=== PATIENT | male | born 1990 | race Caucasian/White ===

== ENCOUNTER 2020-06-07 20:28 | Inpatient (IN) | payer BC, OTHER ==
[2020-06-07 20:50] LABS: Glucose,Whole Blood >600 mg/dL (75-99)
[2020-06-07] MEDS ORDERED: SODIUM CHLORIDE 0.9% 1,000 ML IV STA ×2 (20:53→21:42)
[2020-06-07] MEDS ORDERED: ONDANSETRON 4 MG/2 ML VIAL IVP STA ×2 (20:53→22:38)
--- NOTE | 2020-06-07 21:00 | ED ---
General Adult HPI - General Chief complaint: Nausea/Vomiting/Diarrhea Stated complaint: n/v Time Seen by Provider: 06/07/20 20:44 Source: patient Mode of arrival: ambulatory Limitations: no limitations - History of Present Illness Initial comments: Patient presents the ED complaining of having nausea, vomiting, generalized weakness and dyspnea since about 7 AM this morning. Patient states that he is a type I diabetic and he has not been checking his blood glucose levels recently. Patient states that he has been taking his insulin as prescribed. Patient states that he takes sliding scale NovoLog insulin, and he states that he takes Lantus insulin 38 units every morning. Patient denies having any pain, fever or chills, headache, focal neuro deficit, chest pain, cough or cold symptoms, palpitations, syncope, abdominal pain, diarrhea or constipation, bloody or melanotic stool, hematemesis, dysuria/hematuria/urinary symptoms, leg or calf swelling or pain, or any other symptoms or complaints. Patient denies alcohol or drug abuse. - Related Data Home Medications Medication Instructions Recorded Confirmed INSULIN ASPART (NovoLOG) [NovoLOG See Protocol SQ ACHS 06/07/20 06/07/20 (formulary)] Insulin Glargine [Lantus] 38 unit SQ DAILY 06/07/20 06/07/20 Allergies Allergy/AdvReac Type Severity Reaction Status Date / Time Penicillins Allergy Unknown Verified 06/07/20 21:51 Review of Systems ROS Statement: Those systems with pertinent positive or pertinent negative responses have been documented in the HPI. ROS Other: All systems not noted in ROS Statement are negative. Past Medical History Past Medical History: Diabetes Mellitus History of Any Multi-Drug Resistant Organisms: None Reported Past Surgical History: No Surgical Hx Reported Past Psychological History: No Psychological Hx Reported Smoking Status: Current every day smoker Past Alcohol Use History: None Reported Past Drug Use History: None Reported General Exam Limitations: no limitations General appearance: alert Head exam: Present: atraumatic, normocephalic Eye exam: Present: normal appearance, EOMI ENT exam: Present: mucous membranes dry Neck exam: Present: other (Trachea is in midline). Absent: tenderness, meningismus Respiratory exam: Present: normal lung sounds bilaterally, other (Patient is tachypneic). Absent: wheezes, rales, rhonchi, stridor Cardiovascular Exam: Present: normal rhythm, tachycardia, normal heart sounds, other (Normal radial pulses bilaterally) GI/Abdominal exam: Present: soft. Absent: distended, tenderness, guarding Extremities exam: Absent: tenderness, pedal edema, calf tenderness Back exam: Absent: CVA tenderness (R), CVA tenderness (L) Neurological exam: Present: alert, oriented X3. Absent: motor sensory deficit Psychiatric exam: Present: normal affect, normal mood Skin exam: Present: warm, dry, intact, normal color Course Vital Signs 06/07/20 06/07/20 20:36 21:42 Temperature 98.9 F Pulse Rate 125 H 124 H Respiratory 22 21 Rate Blood Pressure 143/78 144/77 O2 Sat by Pulse 100 100 Oximetry - Reevaluation(s) Reevaluation #1: 06/07/20 22:20 Case, H&P, test results and ED management thus far were discussed with Dr. Jones who is currently in the ED. He accepts hospital admission. He recommends ICU admission and food service utility worker consultation. He has no further recommendations at this time. 06/07/20 22:24 Case was discussed with Dr. Llanes (food service utility worker). He states that he is fine with ICU admission. He has no further recommendations at this time. 06/07/20 22:41 Patient states that his nausea has improved with ED management thus far, and he denies development of any new symptoms while in the ED. Patient is aware of his test results, and he agrees with hospital admission this time. EKG Findings - EKG Comments: EKG Findings:: EKG is limited secondary to motion artifact, sinus tachycardia, ventricular rate of 120 bpm, normal IN and QRS intervals, normal QT interval, normal axis, no ST or T-wave abnormality Medical Decision Making - Medical Decision Making Patient is noted to be in DKA. IV fluid boluses and IV antiemetics were given in the ED. IV insulin drip was initiated in the ED. Dr. Banda has accepted hospital admission, and Dr. Llanes (food service utility worker) has been consulted. - Lab Data Result diagrams: 06/07/20 21:05 06/07/20 21:05 Lab Results 06/07/20 06/07/20 06/07/20 Range/Units 20:42 21:05 21:05 WBC 26.2 H (3.8-10.6) k/uL RBC 5.87 (4.30-5.90) m/uL Hgb 16.9 (13.0-17.5) gm/dL Hct 54.7 H (39.0-53.0) % MCV 93.2 (80.0-100.0) fL MCH 28.7 (25.0-35.0) pg MCHC 30.8 L (31.0-37.0) g/dL RDW 12.5 (11.5-15.5) % Plt Count 373 (150-450) k/uL MPV 8.0 Neutrophils % 90 % Lymphocytes % 5 % Monocytes % 5 % Eosinophils % 0 % Basophils % 0 % Neutrophils # 23.5 H (1.3-7.7) k/uL Lymphocytes # 1.3 (1.0-4.8) k/uL Monocytes # 1.2 H (0-1.0) k/uL Eosinophils # 0.0 (0-0.7) k/uL Basophils # 0.1 (0-0.2) k/uL Hypochromasia Moderate VBG pH (7.31-7.41) VBG pCO2 (37-51) mmHg VBG HCO3 (24-28) mmol/L Sodium (137-145) mmol/L Potassium (3.5-5.1) mmol/L Chloride (98-107) mmol/L Carbon Dioxide (22-30) mmol/L Anion Gap mmol/L BUN (9-20) mg/dL Creatinine (0.66-1.25) mg/dL Est GFR (CKD-EPI)AfAm (>60 ml/min/1.73 sqM) Est GFR (CKD-EPI)NonAf (>60 ml/min/1.73 sqM) Glucose (74-99) mg/dL POC Glucose (mg/dL) >600 H (75-99) mg/dL POC Glu Colorman ID Alexandra Ortega Calcium (8.4-10.2) mg/dL Phosphorus (2.5-4.5) mg/dL Magnesium (1.6-2.3) mg/dL Total Bilirubin (0.2-1.3) mg/dL AST (17-59) U/L ALT (4-49) U/L Alkaline Phosphatase (38-126) U/L Total Protein (6.3-8.2) g/dL Albumin (3.5-5.0) g/dL Lipase (23-300) U/L Urine Color Colorless Urine Appearance Clear (Clear) Urine pH 5.0 (5.0-8.0) Ur Specific [place] 1.020 (1.001-1.035) Urine Protein Negative (Negative) Urine Glucose (UA) 4+ H (Negative) Urine Ketones 3+ H (Negative) Urine Blood Small H (Negative) Urine Nitrite Negative (Negative) Urine Bilirubin Negative (Negative) Urine Urobilinogen <2.0 (<2.0) mg/dL Ur Leukocyte Esterase Negative (Negative) Urine RBC 2 (0-5) /hpf Urine WBC <1 (0-5) /hpf Acetone, Qual (Negative) 06/07/20 06/07/20 06/07/20 Range/Units 21:05 21:25 22:07 WBC (3.8-10.6) k/uL RBC (4.30-5.90) m/uL Hgb (13.0-17.5) gm/dL Hct (39.0-53.0) % MCV (80.0-100.0) fL MCH (25.0-35.0) pg MCHC (31.0-37.0) g/dL RDW (11.5-15.5) % Plt Count (150-450) k/uL MPV Neutrophils % % Lymphocytes % % Monocytes % % Eosinophils % % Basophils % % Neutrophils # (1.3-7.7) k/uL Lymphocytes # (1.0-4.8) k/uL Monocytes # (0-1.0) k/uL Eosinophils # (0-0.7) k/uL Basophils # (0-0.2) k/uL Hypochromasia VBG pH 7.20 L* (7.31-7.41) VBG pCO2 21 L (37-51) mmHg VBG HCO3 8 L* (24-28) mmol/L Sodium 127 L (137-145) mmol/L Potassium 6.0 H (3.5-5.1) mmol/L Chloride 83 L (98-107) mmol/L Carbon Dioxide 6 L* (22-30) mmol/L Anion Gap 38 mmol/L BUN 28 H (9-20) mg/dL Creatinine 1.76 H (0.66-1.25) mg/dL Est GFR (CKD-EPI)AfAm 59 (>60 ml/min/1.73 sqM) Est GFR (CKD-EPI)NonAf 51 (>60 ml/min/1.73 sqM) Glucose 829 H* (74-99) mg/dL POC Glucose (mg/dL) >600 H (75-99) mg/dL POC Glu Colorman ID Magda Melton Calcium 9.7 (8.4-10.2) mg/dL Phosphorus 10.2 H* (2.5-4.5) mg/dL Magnesium 2.2 (1.6-2.3) mg/dL Total Bilirubin 1.0 (0.2-1.3) mg/dL AST 21 (17-59) U/L ALT 27 (4-49) U/L Alkaline Phosphatase 144 H (38-126) U/L Total Protein 7.6 (6.3-8.2) g/dL Albumin 5.1 H (3.5-5.0) g/dL Lipase 47 (23-300) U/L Urine Color Urine Appearance (Clear) Urine pH (5.0-8.0) Ur Specific Eden (1.001-1.035) Urine Protein (Negative) Urine Glucose (UA) (Negative) Urine Ketones (Negative) Urine Blood (Negative) Urine Nitrite (Negative) Urine Bilirubin (Negative) Urine Urobilinogen (<2.0) mg/dL Ur Leukocyte Esterase (Negative) Urine RBC (0-5) /hpf Urine WBC (0-5) /hpf Acetone, Qual Positive (Negative) Critical Care Time Critical Care Time: Yes Total Critical Care Time: 50 (DKA) Disposition Clinical Impression: Nausea and vomiting, Diabetic ketoacidosis Disposition: ADMITTED IP TO THIS [facility] Condition: Stable Is patient prescribed a controlled substance at d/c from ED?: No Referrals: None,Stated [Primary Care Provider] - 1-2 days Time of Disposition: 22:36
[2020-06-07 21:32] LABS: ALT 27 U/L (4-49); AST 21 U/L (17-59); African American GFR (CKD) 59 (>60 ml/min/1.73 sqM); Albumin 5.1 g/dL (3.5-5.0); Alkaline Phosphatase 144 U/L (38-126); Blood Urea Nitrogen 28 mg/dL (9-20); Calcium 9.7 mg/dL (8.4-10.2); Chloride 83 mmol/L (98-107); Lipase 47 U/L (23-300); Magnesium 2.2 mg/dL (1.6-2.3); Non-African American GFR(CKD) 51 (>60 ml/min/1.73 sqM); Sodium 127 mmol/L (137-145); Total Protein 7.6 g/dL (6.3-8.2)
--- NOTE | 2020-06-07 21:34 | XR ---
EXAMINATION TYPE: XR chest 1V portable DATE OF EXAM: 06/07/2020 COMPARISON: 06/15/2012 HISTORY: Short of breath TECHNIQUE: FINDINGS: Heart and mediastinum are normal. Lungs are clear. Diaphragm is normal. Bony thorax appears normal. IMPRESSION: Normal chest. No change.
[2020-06-07 21:36] LABS: Anion Gap 38 mmol/L; Appearance,Urine Clear (Clear); Bilirubin,Urine Negative (Negative); Blood,Urine Small (Negative); Color,Urine Colorless; Glucose,Urine (UA) 4+ (Negative); Leukocyte Esterase,Urine Negative (Negative); Nitrite,Urine Negative (Negative); Protein,Urine Negative (Negative); RBC,Urine 2 /hpf (0-5); Urobilinogen,Urine <2.0 mg/dL (<2.0); WBC,Urine <1 /hpf (0-5)
[2020-06-07 21:46] LABS: Basophils # (A) 0.1 k/uL (0-0.2); Basophils % (A) 0 %; Eosinophils % (A) 0 %; HCT 54.7 % (39.0-53.0); HGB 16.9 gm/dL (13.0-17.5); Hypochromasia Moderate; Lymphocytes # (A) 1.3 k/uL (1.0-4.8); Lymphocytes % (A) 5 %; MCH 28.7 pg (25.0-35.0); MCHC 30.8 g/dL (31.0-37.0); MCV 93.2 fL (80.0-100.0); Monocytes # (A) 1.2 k/uL (0-1.0); Monocytes % (A) 5 %; Neutrophils # (A) 23.5 k/uL (1.3-7.7); Neutrophils % (A) 90 %; Platelet Count 373 k/uL (150-450); RBC 5.87 m/uL (4.30-5.90); RDW 12.5 % (11.5-15.5); WBC 26.2 k/uL (3.8-10.6)
[2020-06-07 21:52] LABS: Glucose 829 mg/dL (74-99)
[2020-06-07 21:54] LABS: VBG PH 7.2 (7.31-7.41)
[2020-06-07 21:54] LABS: Carbon Dioxide 6 mmol/L (22-30); Ketones,Urine 3+ (Negative); Phosphorus 10.2 mg/dL (2.5-4.5)
[2020-06-07] MEDS ORDERED: INSULIN REGULAR BOLUS (FROM DRIP BAG) IV ONE (22:01)
[2020-06-07 22:09] LABS: Glucose,Whole Blood >600 mg/dL (75-99)
[2020-06-07] MEDS ORDERED: INSULIN REGULAR 100 UNIT in SODIUM CHLORIDE 0.9% 100 ML IV SCH (22:30)
[2020-06-07] MEDS: INSULIN REGULAR 100 UNIT in SODIUM CHLORIDE 0.9% 100 ML IV SCH (22:35)
[2020-06-07] MEDS ORDERED: ONDANSETRON 4 MG/2 ML VIAL IVP PRN (22:39)
[2020-06-07] MEDS: SODIUM CHLORIDE 0.9% 1,000 ML IV SCH (22:43)
[2020-06-07] MEDS ORDERED: LIDOCAINE VISCOUS 2% 15 ML CUP MUCOUS MEM STA (23:04)
[2020-06-07 23:11] LABS: Glucose,Whole Blood >600 mg/dL (75-99)
[2020-06-07 23:42] LABS: Glucose,Whole Blood 561 mg/dL (75-99)
[2020-06-08 00:27] LABS: Phosphorus 5.1 mg/dL (2.5-4.5); Potassium 4.9 mmol/L (3.5-5.1)
[2020-06-08 00:55] LABS: Glucose,Whole Blood 437 mg/dL (75-99)
[2020-06-08] MEDS ORDERED: Magnesium Replacement Protocol 1 EACH MISC MISCELLANE PRN (01:46)
[2020-06-08] MEDS ORDERED: Potassium Replacement Protocol 1 EACH MISC MISCELLANE PRN (01:46)
--- NOTE | 2020-06-08 02:00 | P.HPIM ---
History of Present Illness H&P Date: 06/07/20 Chief Complaint: abd pain , generalized weakness 29 year old male with DM insulin dependant patient comes in with generalized weakness, fatigue, and abd pain . he reports vomiting multiple times today, with sore throat, denies any coughing, chest pain , trouble breathing, urinary symptoms, diarrhea, or gi bleeding. he admits to not checking his blood sugar levels, but he has been taking his insulin. he does not watch his diet either. he was found to have severe hyperglycemia with DKA. Review of Systems Pertinent positives as noted in HPI. All other systems were reviewed and are negative Past Medical History Past Medical History: Diabetes Mellitus History of Any Multi-Drug Resistant Organisms: None Reported Past Surgical History: No Surgical Hx Reported Past Psychological History: No Psychological Hx Reported Smoking Status: Current every day smoker Past Alcohol Use History: None Reported Past Drug Use History: None Reported - Past Family History family Family Medical History: No Reported History Medications and Allergies Home Medications Medication Instructions Recorded Confirmed Type INSULIN ASPART (NovoLOG) [NovoLOG See Protocol SQ ACHS 06/07/20 06/07/20 History (formulary)] Insulin Glargine [Lantus] 38 unit SQ DAILY 06/07/20 06/07/20 History Allergies Allergy/AdvReac Type Severity Reaction Status Date / Time Penicillins Allergy Unknown Verified 06/07/20 21:51 Physical Exam Vitals: Vital Signs Temp Pulse Resp BP Pulse Ox 06/07/20 21:42 124 H 21 144/77 100 06/07/20 20:36 98.9 F 125 H 22 143/78 100 Intake and Output 06/07/20 06/07/20 06/08/20 14:59 22:59 06:59 Other: Weight 90.718 kg Constitutional: patient looks very sick and tired Eyes: Anicteric sclerae, moist conjunctiva, Pupils equal round reactive to light ENMT: NC/AT Oropharynx clear, irritation of his oropharynx, no exudates Neck: Supple, FROM, no masses, or JVD No carotid bruits No thyromegaly Lungs: Clear to auscultation Clear to percussion Normal respiratory effort, no accessory muscle use Cardiovascular: Heart regular in rate and rhythm, No murmurs, gallops, or rubs No peripheral edema Abdominal: Soft Nontender, no guarding, rebound or rigidity Abdomen moving with respiration Normoactive bowel sounds No hepatomegaly, No splenomegaly No palpable mass No abdominal wall hernia noted Skin: Normal temperature, tone, texture, turgor No induration No subcutaneous nodules No rash, lesions No ulcers Extremities: No digital cyanosis No clubbing Pedal pulses intact and symmetrical Radial pulses intact and symmetrical No calf tenderness Psychiatric: Alert and oriented to person, place Neuro Muscles Strength 4/5 in all 4 extremities Sensation to light touch grossly present throughout Cranial nerves II-XII grossly intact No focal sensory deficits Lymphatics: no palpable cervical or supraclavicular , or inguinal lymph nodes Results CBC & Chem 7: 06/07/20 21:06/08/20 00:06 Labs: Abnormal Lab Results - Last 24 Hours (Table) 06/07/20 06/07/20 06/07/20 Range/Units 20:42 21:05 21:05 WBC 26.2 H (3.8-10.6) k/uL Hct 54.7 H (39.0-53.0) % MCHC 30.8 L (31.0-37.0) g/dL Neutrophils # 23.5 H (1.3-7.7) k/uL Monocytes # 1.2 H (0-1.0) k/uL VBG pH (7.31-7.41) VBG pCO2 (37-51) mmHg VBG HCO3 (24-28) mmol/L Sodium (137-145) mmol/L Potassium (3.5-5.1) mmol/L Chloride (98-107) mmol/L Carbon Dioxide (22-30) mmol/L BUN (9-20) mg/dL Creatinine (0.66-1.25) mg/dL Glucose (74-99) mg/dL POC Glucose (mg/dL) >600 H (75-99) mg/dL Phosphorus (2.5-4.5) mg/dL Alkaline Phosphatase (38-126) U/L Albumin (3.5-5.0) g/dL Urine Glucose (UA) 4+ H (Negative) Urine Ketones 3+ H (Negative) Urine Blood Small H (Negative) 06/07/20 06/07/20 06/07/20 Range/Units 21:05 21:25 22:07 WBC (3.8-10.6) k/uL Hct (39.0-53.0) % MCHC (31.0-37.0) g/dL Neutrophils # (1.3-7.7) k/uL Monocytes # (0-1.0) k/uL VBG pH 7.20 L* (7.31-7.41) VBG pCO2 21 L (37-51) mmHg VBG HCO3 8 L* (24-28) mmol/L Sodium 127 L (137-145) mmol/L Potassium 6.0 H (3.5-5.1) mmol/L Chloride 83 L (98-107) mmol/L Carbon Dioxide 6 L* (22-30) mmol/L BUN 28 H (9-20) mg/dL Creatinine 1.76 H (0.66-1.25) mg/dL Glucose 829 H* (74-99) mg/dL POC Glucose (mg/dL) >600 H (75-99) mg/dL Phosphorus 10.2 H* (2.5-4.5) mg/dL Alkaline Phosphatase 144 H (38-126) U/L Albumin 5.1 H (3.5-5.0) g/dL Urine Glucose (UA) (Negative) Urine Ketones (Negative) Urine Blood (Negative) 06/07/20 06/07/20 06/08/20 Range/Units 23:09 23:40 00:06 WBC (3.8-10.6) k/uL Hct (39.0-53.0) % MCHC (31.0-37.0) g/dL Neutrophils # (1.3-7.7) k/uL Monocytes # (0-1.0) k/uL VBG pH (7.31-7.41) VBG pCO2 (37-51) mmHg VBG HCO3 (24-28) mmol/L Sodium 134 L (137-145) mmol/L Potassium (3.5-5.1) mmol/L Chloride 96 L (98-107) mmol/L Carbon Dioxide 9 L* (22-30) mmol/L BUN 29 H (9-20) mg/dL Creatinine 1.42 H (0.66-1.25) mg/dL Glucose 565 H* (74-99) mg/dL POC Glucose (mg/dL) >600 H 561 H (75-99) mg/dL Phosphorus 5.1 H (2.5-4.5) mg/dL Alkaline Phosphatase (38-126) U/L Albumin (3.5-5.0) g/dL Urine Glucose (UA) (Negative) Urine Ketones (Negative) Urine Blood (Negative) 06/08/20 Range/Units 00:53 WBC (3.8-10.6) k/uL Hct (39.0-53.0) % MCHC (31.0-37.0) g/dL Neutrophils # (1.3-7.7) k/uL Monocytes # (0-1.0) k/uL VBG pH (7.31-7.41) VBG pCO2 (37-51) mmHg VBG HCO3 (24-28) mmol/L Sodium (137-145) mmol/L Potassium (3.5-5.1) mmol/L Chloride (98-107) mmol/L Carbon Dioxide (22-30) mmol/L BUN (9-20) mg/dL Creatinine (0.66-1.25) mg/dL Glucose (74-99) mg/dL POC Glucose (mg/dL) 437 H (75-99) mg/dL Phosphorus (2.5-4.5) mg/dL Alkaline Phosphatase (38-126) U/L Albumin (3.5-5.0) g/dL Urine Glucose (UA) (Negative) Urine Ketones (Negative) Urine Blood (Negative) Assessment and Plan Assessment: DKA secondary to non compliance DM insulin dependant pseudohyponatremia 2/2 hyperglycemia reactive leukocytosis plan NPO ICU admission due to severe acidosis insulin drip, and bolus insulin IV once aggressive IV fluid hydration close monitoring or electrolytes , K replacement as needed close monitoring of blood sugar, bicarb and anion gap monitor vital signs dietry consult and diabetic education CODE STATUS:full code DVT prophylaxis: mechanical Discussed with: Patient, ER Anticipated length of stay > than [address]: home A total of 75 minutes was spent on the care of this complex patient more than 50% of the time was spent in counseling and care coordination.
[2020-06-08 02:51] LABS: Glucose,Whole Blood 305 mg/dL (75-99)
[2020-06-08] MEDS ORDERED: NALOXONE 0.4 MG/ML 1 ML VIAL IV PRN (04:37)
[2020-06-08 04:41] LABS: Albumin 4.5 g/dL (3.5-5.0); Calcium 9.1 mg/dL (8.4-10.2); Phosphorus 2.2 mg/dL (2.5-4.5); Potassium 4.2 mmol/L (3.5-5.1); Total Bilirubin 0.8 mg/dL (0.2-1.3); Total Protein 6.9 g/dL (6.3-8.2)
[2020-06-08 04:57] LABS: Basophils # (A) 0.1 k/uL (0-0.2); Basophils % (A) 0 %; Eosinophils % (A) 0 %; HCT 47.1 % (39.0-53.0); HGB 16.1 gm/dL (13.0-17.5); Lymphocytes # (A) 1.9 k/uL (1.0-4.8); Lymphocytes % (A) 8 %; MCH 28.9 pg (25.0-35.0); MCHC 34.1 g/dL (31.0-37.0); Mean Platelet Volume 7.3; Monocytes # (A) 1.4 k/uL (0-1.0); Monocytes % (A) 6 %; Neutrophils # (A) 19.5 k/uL (1.3-7.7); Neutrophils % (A) 84 %; Platelet Count 346 k/uL (150-450); RBC 5.57 m/uL (4.30-5.90); RDW 12.6 % (11.5-15.5); WBC 23.1 k/uL (3.8-10.6)
[2020-06-08 05:10] LABS: MCV 84.6 fL (80.0-100.0)
[2020-06-08 06:05] LABS: Glucose,Whole Blood 292 mg/dL (75-99)
[2020-06-08] MEDS: D5-0.45% NACL WITH KCL 20MEQ/L 1,000 ML IV SCH ×2 (06:45→09:15)
[2020-06-08] MEDS: SODIUM CHLORIDE 0.9% 1,000 ML IV SCH ×3 (06:46→16:27)
[2020-06-08 08:35] LABS: African American GFR (CKD) >90 (>60 ml/min/1.73 sqM); Anion Gap 15 mmol/L; Blood Urea Nitrogen 29 mg/dL (9-20); Carbon Dioxide 17 mmol/L (22-30); Chloride 101 mmol/L (98-107); Glucose 256 mg/dL (74-99); Non-African American GFR(CKD) >90 (>60 ml/min/1.73 sqM); Phosphorus 2.2 mg/dL (2.5-4.5); Potassium 4.5 mmol/L (3.5-5.1); Sodium 133 mmol/L (137-145)
[2020-06-08] MEDS ORDERED: Phosphorus Replacement Protoco 1 EACH MISC MISCELLANE PRN (08:50)
[2020-06-08] MEDS ORDERED: SODIUM PHOSPHATE 10 MMOL in SODIUM CHLORIDE 0.9% 250 ML IVPB ONE (09:00)
[2020-06-08 09:02] LABS: Glucose,Whole Blood 273 mg/dL (75-99)
[2020-06-08] MEDS: PANTOPRAZOLE 40 MG/10 ML VIAL IV SCH (09:15)
--- NOTE | 2020-06-08 10:00 | P.PN ---
Subjective Progress Note Date: 06/08/20 Principal diagnosis: CC: Nausea and vomiting found to have DKA Patient states that he still feels nauseous. Overall he is feeling better compared to last night. Objective - Vital Signs Vital signs: Vital Signs Temp 98 F 06/08/20 08:00 Pulse 108 H 06/08/20 09:00 Resp 16 06/08/20 09:00 BP 135/79 06/08/20 09:00 Pulse Ox 98 06/08/20 09:00 Intake & Output 06/07/20 06/08/20 06/08/20 18:59 06:59 18:59 Intake Total 1350 398.314 Output Total 1300 850 Balance 50 -451.686 Weight 90.71 kg Intake: IV 1350 300 0.9 1200 D5-0.45 W/20 KCL 150 300 Intake, IV Titration 98.314 Amount Insulin Regular 100 unit 98.314 In Sodium Chloride 0.9% 100 ml @ 0.1 UNITS/KG/HR 9.163 mls/hr [facility] Rx#:[id number] Output: Urine 1300 850 - Exam General examination - Alert and Oriented 3 in NAD Heart - + S1S2 no murmurs Lungs - Clear to auscultation Abdomen soft NT ND +ve BS Extremities - No edema DIRECTOR CONSUMER - Moving all 4 extremities spontaneously Psych - Calm and cooperative - Labs CBC & Chem 7: 06/08/20 04:16 06/08/20 07:55 Labs: Abnormal Lab Results - Last 24 Hours (Table) 06/07/20 06/07/20 06/07/20 Range/Units 20:42 21:05 21:05 WBC 26.2 H (3.8-10.6) k/uL Hct 54.7 H (39.0-53.0) % MCHC 30.8 L (31.0-37.0) g/dL Neutrophils # 23.5 H (1.3-7.7) k/uL Monocytes # 1.2 H (0-1.0) k/uL VBG pH (7.31-7.41) VBG pCO2 (37-51) mmHg VBG HCO3 (24-28) mmol/L Sodium (137-145) mmol/L Potassium (3.5-5.1) mmol/L Chloride (98-107) mmol/L Carbon Dioxide (22-30) mmol/L BUN (9-20) mg/dL Creatinine (0.66-1.25) mg/dL Glucose (74-99) mg/dL POC Glucose (mg/dL) >600 H (75-99) mg/dL Phosphorus (2.5-4.5) mg/dL AST (17-59) U/L Alkaline Phosphatase (38-126) U/L Albumin (3.5-5.0) g/dL Urine Glucose (UA) 4+ H (Negative) Urine Ketones 3+ H (Negative) Urine Blood Small H (Negative) 06/07/20 06/07/20 06/07/20 Range/Units 21:05 21:25 22:07 WBC (3.8-10.6) k/uL Hct (39.0-53.0) % MCHC (31.0-37.0) g/dL Neutrophils # (1.3-7.7) k/uL Monocytes # (0-1.0) k/uL VBG pH 7.20 L* (7.31-7.41) VBG pCO2 21 L (37-51) mmHg VBG HCO3 8 L* (24-28) mmol/L Sodium 127 L (137-145) mmol/L Potassium 6.0 H (3.5-5.1) mmol/L Chloride 83 L (98-107) mmol/L Carbon Dioxide 6 L* (22-30) mmol/L BUN 28 H (9-20) mg/dL Creatinine 1.76 H (0.66-1.25) mg/dL Glucose 829 H* (74-99) mg/dL POC Glucose (mg/dL) >600 H (75-99) mg/dL Phosphorus 10.2 H* (2.5-4.5) mg/dL AST (17-59) U/L Alkaline Phosphatase 144 H (38-126) U/L Albumin 5.1 H (3.5-5.0) g/dL Urine Glucose (UA) (Negative) Urine Ketones (Negative) Urine Blood (Negative) 06/07/20 06/07/20 06/08/20 Range/Units 23:09 23:40 00:06 WBC (3.8-10.6) k/uL Hct (39.0-53.0) % MCHC (31.0-37.0) g/dL Neutrophils # (1.3-7.7) k/uL Monocytes # (0-1.0) k/uL VBG pH (7.31-7.41) VBG pCO2 (37-51) mmHg VBG HCO3 (24-28) mmol/L Sodium 134 L (137-145) mmol/L Potassium (3.5-5.1) mmol/L Chloride 96 L (98-107) mmol/L Carbon Dioxide 9 L* (22-30) mmol/L BUN 29 H (9-20) mg/dL Creatinine 1.42 H (0.66-1.25) mg/dL Glucose 565 H* (74-99) mg/dL POC Glucose (mg/dL) >600 H 561 H (75-99) mg/dL Phosphorus 5.1 H (2.5-4.5) mg/dL AST (17-59) U/L Alkaline Phosphatase (38-126) U/L Albumin (3.5-5.0) g/dL Urine Glucose (UA) (Negative) Urine Ketones (Negative) Urine Blood (Negative) 06/08/20 06/08/20 06/08/20 Range/Units 00:53 02:49 04:16 WBC (3.8-10.6) k/uL Hct (39.0-53.0) % MCHC (31.0-37.0) g/dL Neutrophils # (1.3-7.7) k/uL Monocytes # (0-1.0) k/uL VBG pH (7.31-7.41) VBG pCO2 (37-51) mmHg VBG HCO3 (24-28) mmol/L Sodium 136 L (137-145) mmol/L Potassium (3.5-5.1) mmol/L Chloride (98-107) mmol/L Carbon Dioxide 16 L (22-30) mmol/L BUN 29 H (9-20) mg/dL Creatinine 1.33 H (0.66-1.25) mg/dL Glucose 233 H (74-99) mg/dL POC Glucose (mg/dL) 437 H 305 H (75-99) mg/dL Phosphorus 2.2 L (2.5-4.5) mg/dL AST 16 L (17-59) U/L Alkaline Phosphatase (38-126) U/L Albumin (3.5-5.0) g/dL Urine Glucose (UA) (Negative) Urine Ketones (Negative) Urine Blood (Negative) 06/08/20 06/08/20 06/08/20 Range/Units 04:16 06:04 07:55 WBC 23.1 H (3.8-10.6) k/uL Hct (39.0-53.0) % MCHC (31.0-37.0) g/dL Neutrophils # 19.5 H (1.3-7.7) k/uL Monocytes # 1.4 H (0-1.0) k/uL VBG pH (7.31-7.41) VBG pCO2 (37-51) mmHg VBG HCO3 (24-28) mmol/L Sodium 133 L (137-145) mmol/L Potassium (3.5-5.1) mmol/L Chloride (98-107) mmol/L Carbon Dioxide 17 L (22-30) mmol/L BUN 29 H (9-20) mg/dL Creatinine (0.66-1.25) mg/dL Glucose 256 H (74-99) mg/dL POC Glucose (mg/dL) 292 H (75-99) mg/dL Phosphorus 2.2 L (2.5-4.5) mg/dL AST (17-59) U/L Alkaline Phosphatase (38-126) U/L Albumin (3.5-5.0) g/dL Urine Glucose (UA) (Negative) Urine Ketones (Negative) Urine Blood (Negative) 06/08/20 Range/Units 09:00 WBC (3.8-10.6) k/uL Hct (39.0-53.0) % MCHC (31.0-37.0) g/dL Neutrophils # (1.3-7.7) k/uL Monocytes # (0-1.0) k/uL VBG pH (7.31-7.41) VBG pCO2 (37-51) mmHg VBG HCO3 (24-28) mmol/L Sodium (137-145) mmol/L Potassium (3.5-5.1) mmol/L Chloride (98-107) mmol/L Carbon Dioxide (22-30) mmol/L BUN (9-20) mg/dL Creatinine (0.66-1.25) mg/dL Glucose (74-99) mg/dL POC Glucose (mg/dL) 273 H (75-99) mg/dL Phosphorus (2.5-4.5) mg/dL AST (17-59) U/L Alkaline Phosphatase (38-126) U/L Albumin (3.5-5.0) g/dL Urine Glucose (UA) (Negative) Urine Ketones (Negative) Urine Blood (Negative) Assessment and Plan Assessment: #DKA secondary to non compliance -Admit to ICU. DKA protocol -AG this morning is 15 -Patient states that he has been noncompliant because he recently lost his job so has a hard time paying for his insulin. #pseudohyponatremia 2/2 hyperglycemia -Resolved #reactive leukocytosis -Trend CBC CODE STATUS:full code DVT prophylaxis: mechanical Discussed with: Patient, ER Anticipated length of stay 1-[address]: home
[2020-06-08 10:02] LABS: Glucose,Whole Blood 246 mg/dL (75-99)
[2020-06-08 10:34] VITALS: BMI 31.3
[2020-06-08 10:56] LABS: Glucose,Whole Blood 197 mg/dL (75-99)
[2020-06-08 11:57] LABS: Glucose,Whole Blood 192 mg/dL (75-99)
--- NOTE | 2020-06-08 12:19 | P.CNPUL ---
History of Present Illness Consult date: 06/08/20 Requesting physician: Mer Jones Reason for consult: other (Acute DKA.) Chief complaint: Nausea abdominal pain and generalized weakness History of present illness: This is a 29-year-old white male with history of type 1 diabetes, patient has been noncompliant with his insulin, mostly because the patient was recently fired from his job, has no insurance to buy his medications. Patient came in with 1 day history of generalized weakness, fatigue, abdominal pain, nausea but no vomiting, patient was found to have hyperglycemia and acute diabetic ketoacidosis. Patient was placed on the protocol, received significant amount of IV fluids, admitted to the ICU, and I was asked to see him on consultation. Patient remains on insulin at 10 units per hour, he is presently on D5 40 5 running at 150 ML per hour. His anion gap significantly improved, but remains around 15 compared to on iron Of 38 on presentation. Patient has leukocytosis with WBC count of 23.1. Liver enzymes were relatively unremarkable. Lipase is normal. Urinalysis is positive for ketones and positive for glucose. Patient has been complaining of chronic right mandibular pain, denies any history of tooth abscess, feels the pain is in the right mandible, shoots up to his right ear. Review of Systems Constitutional: Generalized weakness and fatigue. No weight loss. Eyes: Negative. Ears: Negative. Ears, nose, mouth and throat: Chronic right mandibular pain with radiation of the pain to the right ear. Cardiovascular: Negative Respiratory: Negative. Gastrointestinal: As noted in HPI. Genitourinary: Negative. Musculoskeletal: Generalized weakness otherwise negative. Integumentary: Negative Neurological: Negative. Psychiatric: Negative Endocrine: History of type 1 diabetes. Hematologic/Lymphatic: Negative Allergic/Immunologic: Negative. Past Medical History Past Medical History: Diabetes Mellitus History of Any Multi-Drug Resistant Organisms: None Reported Past Surgical History: No Surgical Hx Reported Past Psychological History: No Psychological Hx Reported Smoking Status: Current every day smoker Past Alcohol Use History: None Reported Past Drug Use History: None Reported - Past Family History family Family Medical History: No Reported History Medications and Allergies Home Medications Medication Instructions Recorded Confirmed Type INSULIN ASPART (NovoLOG) [NovoLOG See Protocol SQ ACHS 06/07/20 06/07/20 History (formulary)] Insulin Glargine [Lantus] 38 unit SQ DAILY 06/07/20 06/07/20 History Allergies Allergy/AdvReac Type Severity Reaction Status Date / Time Penicillins Allergy Unknown Verified 06/07/20 21:51 Physical Exam Vitals: Vital Signs Temp Pulse Pulse Resp BP Pulse Ox 06/08/20 12:00 98 F 114 H 25 H 111/60 96 06/08/20 11:00 112 H 15 117/76 95 06/08/20 10:00 113 H 17 126/79 92 L 06/08/20 09:00 108 H 16 135/79 98 06/08/20 08:00 98 F 114 H 12 121/74 95 06/08/20 07:00 122 H 20 125/72 95 06/08/20 06:00 118 H 21 139/70 93 L 06/08/20 05:00 112 H 16 121/74 98 06/08/20 04:00 98.2 F 114 H 115 H 18 131/71 96 06/08/20 03:00 117 H 31 H 136/81 95 06/08/20 02:00 115 H 15 141/92 97 06/08/20 01:00 116 H 18 132/87 97 06/08/20 00:00 98.7 F 118 H 115 H 16 150/84 98 06/07/20 23:00 126 H 20 06/07/20 22:00 144/77 06/07/20 21:42 124 H 21 144/77 100 06/07/20 21:02 99 06/07/20 20:36 98.9 F 125 H 22 143/78 100 Intake and Output 06/07/20 06/08/20 06/08/20 22:59 06:59 14:59 Intake Total 1350 1058.314 Output Total 1300 850 Balance 50 208.314 Intake: IV 1350 600 0.9 1200 D5-0.45 W/20 KCL 150 600 Intake, IV Titration 98.314 Amount Insulin Regular 100 unit 98.314 In Sodium Chloride 0.9% 100 ml @ 0.1 UNITS/KG/HR 9.163 mls/hr IV .Q11H2M [facility] Rx#:[id number] Oral 360 Output: Urine 1300 850 Other: Weight 90.718 kg 90.71 kg 90.71 kg Physical Exam: Revealed 29-year-old white male in no distress. Head: Atraumatic, normocephalic. HEENT:[Neck is supple.] [No neck masses.] [No thyromegaly.] [No JVD.] No tenderness noted over the right mandible, no evidence of oral abscess noted. Chest: [Clear throughout, no crackles, no rhonchi, no wheezes.] Cardiac Exam: [Normal S1 and S2, no S3 gallop, no murmur.] Abdomen: [Soft, nontender, no megaly, no rebound, no guarding, normal bowel sounds.] Extremities: [No clubbing, no edema, no cyanosis.] Good pulses bilaterally. Skin: Unremarkable except for multiple tattoos all over the whole body. Neurological Exam: [No focal neurologic deficit.] Alert And oriented 3. Psychiatric: Normal mood, affect and normal mental status examination Results - Laboratory Findings CBC and BMP: 06/08/20 04:16 06/08/20 07:55 Abnormal lab findings: Abnormal Labs 06/07/20 06/07/20 06/07/20 20:42 21:05 21:05 WBC 26.2 H Hct 54.7 H MCHC 30.8 L Neutrophils # 23.5 H Monocytes # 1.2 H VBG pH VBG pCO2 VBG HCO3 Sodium Potassium Chloride Carbon Dioxide BUN Creatinine Glucose POC Glucose (mg/dL) >600 H Phosphorus AST Alkaline Phosphatase Albumin Urine Glucose (UA) 4+ H Urine Ketones 3+ H Urine Blood Small H 06/07/20 06/07/20 06/07/20 21:05 21:25 22:07 WBC Hct MCHC Neutrophils # Monocytes # VBG pH 7.20 L* VBG pCO2 21 L VBG HCO3 8 L* Sodium 127 L Potassium 6.0 H Chloride 83 L Carbon Dioxide 6 L* BUN 28 H Creatinine 1.76 H Glucose 829 H* POC Glucose (mg/dL) >600 H Phosphorus 10.2 H* AST Alkaline Phosphatase 144 H Albumin 5.1 H Urine Glucose (UA) Urine Ketones Urine Blood 06/07/20 06/07/20 06/08/20 23:09 23:40 00:06 WBC Hct MCHC Neutrophils # Monocytes # VBG pH VBG pCO2 VBG HCO3 Sodium 134 L Potassium Chloride 96 L Carbon Dioxide 9 L* BUN 29 H Creatinine 1.42 H Glucose 565 H* POC Glucose (mg/dL) >600 H 561 H Phosphorus 5.1 H AST Alkaline Phosphatase Albumin Urine Glucose (UA) Urine Ketones Urine Blood 06/08/20 06/08/20 06/08/20 00:53 02:49 04:16 WBC Hct MCHC Neutrophils # Monocytes # VBG pH VBG pCO2 VBG HCO3 Sodium 136 L Potassium Chloride Carbon Dioxide 16 L BUN 29 H Creatinine 1.33 H Glucose 233 H POC Glucose (mg/dL) 437 H 305 H Phosphorus 2.2 L AST 16 L Alkaline Phosphatase Albumin Urine Glucose (UA) Urine Ketones Urine Blood 06/08/20 06/08/20 06/08/20 04:16 06:04 07:55 WBC 23.1 H Hct MCHC Neutrophils # 19.5 H Monocytes # 1.4 H VBG pH VBG pCO2 VBG HCO3 Sodium 133 L Potassium Chloride Carbon Dioxide 17 L BUN 29 H Creatinine Glucose 256 H POC Glucose (mg/dL) 292 H Phosphorus 2.2 L AST Alkaline Phosphatase Albumin Urine Glucose (UA) Urine Ketones Urine Blood 06/08/20 06/08/20 06/08/20 09:00 10:01 10:55 WBC Hct MCHC Neutrophils # Monocytes # VBG pH VBG pCO2 VBG HCO3 Sodium Potassium Chloride Carbon Dioxide BUN Creatinine Glucose POC Glucose (mg/dL) 273 H 246 H 197 H Phosphorus AST Alkaline Phosphatase Albumin Urine Glucose (UA) Urine Ketones Urine Blood 06/08/20 11:56 WBC Hct MCHC Neutrophils # Monocytes # VBG pH VBG pCO2 VBG HCO3 Sodium Potassium Chloride Carbon Dioxide BUN Creatinine Glucose POC Glucose (mg/dL) 192 H Phosphorus AST Alkaline Phosphatase Albumin Urine Glucose (UA) Urine Ketones Urine Blood - Diagnostic Findings Chest x-ray: image reviewed (No evidence of active disease) Assessment and Plan Assessment: Impression: Acute diabetic ketoacidosis secondary to noncompliance with insulin. History of type 1 diabetes. Multiple GI symptoms secondary to DKA. Recommendation: Continue treatment plan. Continue DKA protocol. Patient is responding well to treatment, and we'll likely, off insulin sometime later today. Possibly discharge home in the next 24-48 hours. Counseled regarding noncompliance Time with Patient: Greater than 30
[2020-06-08 12:29] LABS: African American GFR (CKD) >90 (>60 ml/min/1.73 sqM); Anion Gap 10 mmol/L; Blood Urea Nitrogen 24 mg/dL (9-20); Carbon Dioxide 19 mmol/L (22-30); Chloride 103 mmol/L (98-107); Glucose 198 mg/dL (74-99); Non-African American GFR(CKD) >90 (>60 ml/min/1.73 sqM); Phosphorus 2.6 mg/dL (2.5-4.5); Potassium 4.5 mmol/L (3.5-5.1); Sodium 132 mmol/L (137-145)
[2020-06-08 12:51] LABS: Glucose,Whole Blood 174 mg/dL (75-99)
[2020-06-08 13:55] LABS: Glucose,Whole Blood 122 mg/dL (75-99)
[2020-06-08 14:57] LABS: Glucose,Whole Blood 99 mg/dL (75-99)
[2020-06-08] MEDS: INSULIN REGULAR 100 UNIT in SODIUM CHLORIDE 0.9% 100 ML IV SCH (16:27)
[2020-06-08 16:41] LABS: Glucose,Whole Blood 174 mg/dL (75-99)
[2020-06-08] MEDS: INSULIN ASPART (NovoLOG) 100 UNIT/ML VIAL SQ SCH ×2 (16:54→21:24)
[2020-06-08 21:00] LABS: Glucose,Whole Blood 245 mg/dL (75-99)
[2020-06-08] MEDS ORDERED: INSULIN DETEMIR (LEVEMIR) 100 UNIT/ML SYR SQ SCH (21:00)
[2020-06-09 07:22] LABS: Glucose,Whole Blood 172 mg/dL (75-99)
[2020-06-09 08:01] VITALS: RESP 18
[2020-06-09] MEDS ORDERED: ACETAMINOPHEN TAB 325 MG TAB PO PRN (08:22)
[2020-06-09] MEDS: PANTOPRAZOLE 40 MG/10 ML VIAL IV SCH (09:03)
[2020-06-09] MEDS: INSULIN ASPART (NovoLOG) 100 UNIT/ML VIAL SQ SCH ×2 (09:04→12:37)
[2020-06-09 12:02] LABS: Glucose,Whole Blood 208 mg/dL (75-99)
--- NOTE | 2020-06-09 12:27 | P.DS ---
Providers Date of admission: 06/07/20 22:38 Expected date of discharge: 06/09/20 Attending physician: Mer Jones MD Consults: 06/07/20 22:36 Consult Physician Stat Consulting Provider: Melvin Llanes Consult Reason/Comments: DKA Do you want consulting provider notified?: Already Contacted Primary care physician: Stated None Hospital Course: #DKA secondary to non compliance #pseudohyponatremia 2/2 hyperglycemia #reactive leukocytosis 29 year old man with DMII presented with hyperglycemia in DKA after having had a hard time paying for his diabetic testing supplies and insulin. Pt rec'd fluids and electrolytes PRN and was placed on an insulin gtt prior to transitioning back to subcutaneous insulin at his home regimen. Pt was in baseline condition on day of discharge, and CM helped to facilitate him getting his diabetes management supplies prior to discharge home. Assessment: Gen: awake, alert HEENT: normocephalic, atraumatic, good hearing acuity, moist mucous membranes Resp: good air exchange, breathing comfortably with no accessory muscle use CVS: good distal perfusion x 4, GI: soft, NTTP, ND : no SPT, no CVAT, garzon catheter not present MSK: no pitting edema, no clubbing Neuro: non-focal, moving all extremities Psych: cooperative, euthymic mood Patient Condition at Discharge: Good Plan - Discharge Summary Discharge Rx Participant: Yes New Discharge Prescriptions: Continue Insulin Glargine [Lantus] 38 unit SQ DAILY INSULIN ASPART (NovoLOG) [NovoLOG (formulary)] See Protocol SQ [facility] [address] Discharge Medication List INSULIN ASPART (NovoLOG) [NovoLOG (formulary)] See Protocol SQ [facility] [address] 06/07/20 [History] Insulin Glargine [Lantus] 38 unit SQ DAILY 06/07/20 [History] Follow up Appointment(s)/Referral(s): None,Stated [Primary Care Provider] - 1-2 days Activity/Diet/Wound Care/Special Instructions: Please go to [email or web address] to find a local physician. Discharge Disposition: HOME SELF-CARE
[2020-06-09 14:37] VITALS: BP 144/80; PULSE 98; TEMP 98.6
--- NOTE | 2020-06-09 15:42 | P.PN ---
Subjective Progress Note Date: 06/09/20 Principal diagnosis: Acute diabetic ketoacidosis, resolved This is a 29-year-old white male with history of type 1 diabetes, patient has been noncompliant with his insulin, mostly because the patient was recently fired from his job, has no insurance to buy his medications. Patient came in with 1 day history of generalized weakness, fatigue, abdominal pain, nausea but no vomiting, patient was found to have hyperglycemia and acute diabetic ketoacidosis. Patient was placed on the protocol, received significant amount of IV fluids, admitted to the ICU, and I was asked to see him on consultation. Patient remains on insulin at 10 units per hour, he is presently on D5 40 5 r unning at 150 ML per hour. His anion gap significantly improved, but remains around 15 compared to on iron Of 38 on presentation. Patient has leukocytosis with WBC count of 23.1. Liver enzymes were relatively unremarkable. Lipase is normal. Urinalysis is positive for ketones and positive for glucose. Patient has been complaining of chronic right mandibular pain, denies any history of tooth abscess, feels the pain is in the right mandible, shoots up to his right ear. On 06/09/2020 patient seen in follow-up on medical floor, he is awake and alert, oriented 3, he sitting in bed, in no acute distress, room air pulse ox is 96%, vital signs have been stable, she has been afebrile, breathing comfortably, yesterday's labs revealed anion gap of 10, BUN of 24, creatinine 0.90, sodium 132, potassium is 4.5, CO2 was 19. No new labs today, patient has been transitioned to Levemir 30 units at bedtime, and sliding scale NovoLog doing well, no acute events overnight. No nausea or vomiting, he is tolerating oral intake. Objective - Vital Signs Vital signs: Vital Signs Temp 98.6 F 06/09/20 14:00 Pulse 98 06/09/20 14:00 Resp 18 06/09/20 14:00 BP 144/80 06/09/20 14:00 Pulse Ox 96 06/09/20 14:00 Intake & Output 06/08/20 06/09/20 06/09/20 18:59 06:59 18:59 Intake Total 1358.314 Output Total 1250 800 Balance 108.314 -800 Weight 90.71 kg Intake: IV 900 D5-0.45 W/20 KCL 900 Intake, IV Titration 98.314 Amount Insulin Regular 100 unit 98.314 In Sodium Chloride 0.9% 100 ml @ 0.1 UNITS/KG/HR 9.163 mls/hr IV .Q11H2M [facility] Rx#:[id number] Oral 360 Output: Urine 1250 800 Other: Voiding Method Toilet Toilet Urinal - Exam GENERAL EXAM: Alert, very pleasant, 29-year-old white male, on room air comfortable in no apparent distress. HEAD: Normocephalic/atraumatic. EYES: Normal reaction of pupils, equal size. Conjunctiva pink, sclera white. NOSE: Clear with pink turbinates. THROAT: No erythema or exudates. NECK: No masses, no JVD, no thyroid enlargement, no adenopathy. CHEST: No chest wall deformity. Symmetrical expansion. LUNGS: Equal air entry with no crackles, wheeze, rhonchi or dullness. CVS: Regular rate and rhythm, normal S1 and S2, no gallops, no murmurs, no rubs ABDOMEN: Soft, nontender. No hepatosplenomegaly, normal bowel sounds, no guarding or rigidity. EXTREMITIES: No clubbing, no edema, no cyanosis, 2+ pulses and upper and lower extremities. MUSCULOSKELETAL: Muscle strength and tone normal. SPINE: No scoliosis or deformity SKIN: No rashes CENTRAL NERVOUS SYSTEM: Alert and oriented -3. No focal deficits, tone is normal in all 4 extremities. PSYCHIATRIC: Alert and oriented -3. Appropriate affect. Intact judgment and i nsight. - Labs CBC & Chem 7: 06/08/20 04:16 06/08/20 11:44 Labs: Abnormal Lab Results - Last 24 Hours (Table) 06/08/20 06/08/20 06/09/20 Range/Units 16:39 20:58 07:20 POC Glucose (mg/dL) 174 H 245 H 172 H (75-99) mg/dL 06/09/20 Range/Units 12:00 POC Glucose (mg/dL) 208 H (75-99) mg/dL Assessment and Plan Plan: Assessment: #1. Acute diabetic ketoacidosis secondary to noncompliance with insulin, resolved #2. History of type 1 diabetes mellitus #3. Multiple GI symptoms secondary to DKA, resolved #4. Current every day smoker Plan: Patient has been stable overnight, he has been transitioned to Levemir, and sliding scale NovoLog, he is awake and alert, no altered mentation, tolerating oral intake, no acute events overnight, he is anticipated to be discharged today, no further recommendations from pulmonary/critical care service I performed a history & physical examination of the patient and discussed their management with my nurse practitioner, Annmarie Overton. I reviewed the nurse practitioner's note and agree with the documented findings and plan of care. Lung sounds are positive for clear breath sounds. The findings and the impression was discussed with the patient. I attest to the documentation by the nurse practitioner. Time with Patient: Less than 30
== END 2020-06-09 17:06 | disposition home or self-care (01) | DRG 639 ==
LOC: EC 20:28 → 2SICU 22:38 → 4SSUR 06-08 16:23
PROVIDERS: ADMIT Internal Medicine; ATTEND Internal Medicine
DX: E10.10 Type 1 diabetes mellitus with ketoacidosis without coma (principal); D72.828 Other elevated white blood cell count; F17.210 Nicotine dependence, cigarettes, uncomplicated; Z79.4 Long term (current) use of insulin; Z91.14 Patient's other noncompliance with medication regimen; Z91.19 Patient's noncompliance with other medical treatment and regimen; R68.84 Jaw pain
CPT/HCPCS: 36415; 71045; 80051; 80053; 81001; 82009; 82565; 82803; 82947; 83036; 83690; 83735; 84100; 84520; 85025; 93005; 96361; 96374; 96376; 99291